=== PATIENT | female | born 1965 | race African-American/Black ===

== ENCOUNTER 2016-09-26 09:02 | Emergency (ER) | payer MEDICARE, MEDICAID ==
[2016-09-26 11:43] VITALS: BP 138/88
[2016-09-26 12:01] LABS: Hematocrit 38 % (35-47); Hemoglobin 12.1 g/dl (12.0-16.0); Mean Corpuscular HGB Conc 32 g/dl (31-36); Mean Corpuscular Hemoglobin 27 pg (27-31); Mean Corpuscular Volume 85 fL (80-97); Mean Platelet Volume 8 um3 (7.4-10.4); Red Blood Count 4.47 10^6/ul (4.0-5.4); Red Cell Distribution Width 15 % (10.5-15); White Blood Count 7.1 10^3/ul (3.5-10.8)
[2016-09-26 12:14] LABS: Albumin 4.3 g/dL (3.2-5.2); BUN/Creatinine Ratio 11.8 (8-20); Calcium 9.5 mg/dL (8.6-10.3); EGFR African American 118.3 (>60); Globulin 3.6 g/dL (2-4); Potassium 4.3 mmol/L (3.5-5.0); Total Bilirubin 0.3 mg/dL (0.2-1.0); Total Protein 7.9 g/dL (6.4-8.9)
[2016-09-26 12:16] LABS: Troponin I 0.03 ng/mL (<0.04)
[2016-09-26 12:41] LABS: TSH (Thyroid Stimulating Horm) 1.84 mcIU/mL (0.34-5.60)
--- NOTE | 2016-09-26 16:03 | ED ---
Andres Darden Auryana, scribed for Sree Stephen MD on 09/26/16 at 1129 . Palpitations / Dysrhythmia - HPI Summary HPI Summary: 51 year old female presents with dysrhythmia starting at 08:00. She reports that her HR was 192 via pulse ox monitor at home. She reports that is lasted until she got here and then her symptoms decreased and eventually resolved. She also has SOB, dizziness - characterized as near syncope with standing, and diaphoresis but denies any CP. She reports no improvement with attempted methods - rest or cold water on face. She denies any caffeine, alcohol, tobacco but states she does eat dark chocolate. She does report oral canadiasis. She is not on a diuretic but does take a potassium (low K+) and a magnesium (believes it would be good for her) supplement. She is not on Veramapil, digoxin, or diltiazem. Her escrow closer is Dr. Brice. Her last episode of SVT was in October 2015. PMHx is significant for SVT with ablation - on metoprolol- recently increased to 200 mg. - History of Current Complaint Chief Complaint: EDDysrhythmPalp Time Seen by Provider: 09/26/16 11:06 Hx Obtained From: Patient Onset/Duration: Sudden Onset Timing: Intermittent Episodes Lasting: - 08:00 until arrival Severity Initially: Mild Severity Currently: Mild Character: Fast - SVT Aggravating: Nothing Alleviating: Nothing Associated Signs & Symptoms: Dizzy, Shortness of Breath Related History: Similar Episode/Dx as - yes see hpi - Allergy/Home Medications Allergies/Adverse Reactions: Allergies Allergy/AdvReac Type Severity Reaction Status Date / Time Latex Allergy IRRITATION Verified 12/13/15 09:02 PMH/Surg Hx/FS Hx/Imm Hx Cardiovascular History: Reports: Hx Coronary Artery Disease, Hx Hypertension, Other Cardiovascular Problems/Disorders - AR X 2, ablation for SVT Respiratory History: Reports: Other Respiratory Problems/Disorders - LARINGEAL CA Musculoskeletal History: Reports: Other Musculoskeletal History - chronic pain both arms - Cancer History Cancer Type, Location and Year: laryngeal - Surgical History Surgery Procedure, Year, and Place: Laryngectomy in 2010 - Immunization History Date of Tetanus Vaccine: unk Date of Influenza Vaccine: fall 2012 Infectious Disease History: Denies: Traveled Outside the [place] in Last 30 Days - Family History Known Family History: Positive: Cardiac Disease, Diabetes, Other - lung cancer - Social History Occupation: Disabled Lives: With Family Alcohol Use: None Substance Use Type: Reports: None Smoking Status (MU): Never Smoked Tobacco Review of Systems Positive: Skin Diaphoresis, Other - dizziness - near syncope with standing Eyes: Negative ENT: Negative Positive: Palpitations. Negative: Chest Pain Positive: Shortness Of Breath Gastrointestinal: Negative Genitourinary: Negative Musculoskeletal: Negative Skin: Negative Neurological: Negative Psychological: Normal All Other Systems Reviewed And Are Negative: Yes Physical Exam - Summary Physical Exam Summary: The patient is well-nourished in no acute distress and in no acute pain. The skin is warm and dry and skin color reflects adequate perfusion. HEENT: The head is normocephalic and atraumatic. The pupils are equal and reactive. The conjunctivae are clear and without drainage. Nares are patent and without drainage. Mouth reveals moist mucous membranes and the throat is without erythema and exudate. The external ears are intact. The ear canals are patent and without drainage. The tympanic membranes are intact. Laryngectomy. Neck is supple with full range of motion and non-tender. There are no carotid bruits. There is no neck vein distension. Respiratory: Chest is non-tender. Lungs are clear to auscultation and breath sounds are symmetrical and equal. Cardiovascular: Hear is regular rate and rhythm. There is no murmur or rub auscultated. There is no peripheral edema and pulses are symmetrical and equal. Abdomen: The abdomen is soft and non-tender. There are normal bowel sounds heard in all four quadrants and there is no organomegaly palpated. Musculoskeletal: There is no back pain noted. Extremities are non-tender with full range of motion. There is good capillary refill. There is no peripheral edema or calf tenderness elicited. Neurological: Patient is alert and oriented to person, place and time. The patient has symmetrical motor strength in all four extremities. Cranial nerves are grossly intact. Deep tendon reflexes are symmetrical and equal in all four extremities. Psychiatric: The patient has an appropriate affect and does not exhibit any anxiety or depression. Triage Information Reviewed: Yes Vital Signs On Initial Exam: Initial Vitals Temp Pulse Resp BP Pulse Ox 96.7 F 87 18 125/68 100 09/26/16 09:05 09/26/16 09:05 09/26/16 09:05 09/26/16 09:05 09/26/16 09:05 Vital Signs Reviewed: Yes Diagnostics - Vital Signs Vital Signs Temp Pulse Resp BP Pulse Ox 09/26/16 09:05 96.7 F 87 18 125/68 100 - Laboratory Lab Results: Lab Results 09/26/16 09/26/16 09/26/16 Range/Units 11:50 11:50 11:50 WBC 7.1 (3.5-10.8) 10^3/ul RBC 4.47 (4.0-5.4) 10^6/ul Hgb 12.1 (12.0-16.0) g/dl Hct 38 (35-47) % MCV 85 (80-97) fL MCH 27 (27-31) pg MCHC 32 (31-36) g/dl RDW 15 (10.5-15) % Plt Count 341 (150-450) 10^3/ul MPV 8 (7.4-10.4) um3 Neut % (Auto) 62.8 (38-83) % Lymph % (Auto) 23.6 L (25-47) % Gray % (Auto) 10.4 H (1-9) % Eos % (Auto) 2.7 (0-6) % Baso % (Auto) 0.5 (0-2) % Absolute Neuts (auto) 4.5 (1.5-7.7) 10^3/ul Absolute Lymphs (auto) 1.7 (1.0-4.8) 10^3/ul Absolute Monos (auto) 0.7 (0-0.8) 10^3/ul Absolute Eos (auto) 0.2 (0-0.6) 10^3/ul Absolute Basos (auto) 0 (0-0.2) 10^3/ul Absolute Nucleated RBC 0 10^3/ul Nucleated RBC % 0 Sodium 136 (133-145) mmol/L Potassium 4.3 (3.5-5.0) mmol/L Chloride 102 (101-111) mmol/L Carbon Dioxide 28 (22-32) mmol/L Anion Gap 6 (2-11) mmol/L BUN 8 (6-24) mg/dL Creatinine 0.68 (0.51-0.95) mg/dL Est GFR ( Amer) 118.3 (>60) Est GFR (Non-Af Amer) 92.0 (>60) BUN/Creatinine Ratio 11.8 (8-20) Glucose 93 (70-100) mg/dL Lactic Acid 1.0 (0.5-2.0) mmol/L Calcium 9.5 (8.6-10.3) mg/dL Magnesium 2.0 (1.9-2.7) mg/dL Total Bilirubin 0.30 (0.2-1.0) mg/dL AST 27 (13-39) U/L ALT 23 (7-52) U/L Alkaline Phosphatase 77 (34-104) U/L Troponin I 0.03 (<0.04) ng/mL Total Protein 7.9 (6.4-8.9) g/dL Albumin 4.3 (3.2-5.2) g/dL Globulin 3.6 (2-4) g/dL Albumin/Globulin Ratio 1.2 (1-3) TSH 1.84 (0.34-5.60) mcIU/mL Result Diagrams: 09/26/16 11:50 09/26/16 11:50 Lab Statement: Any lab studies that have been ordered have been reviewed, and results considered in the medical decision making process. - EKG 09:24 EKG Interpretation: Normal sinus, T wave inversion (new) NO STEMI Re-Evaluation - Re-Evaluation First Eval Re-Evaluation Time: 13:08 - discussed labs, EKG nad plan of action Change: Improved Course/Dx - Course Assessment/Plan: 51 year old female presents with dysrhythmia starting at 08: 00. She reports that her HR was 192 via pulse ox monitor at home. She reports that is lasted until she got here and then her symptoms decreased and eventually resolved. She also has SOB, dizziness - characterized as near syncope with standing, and diaphoresis but denies any CP. She denies any caffeine, alcohol, tobacco but states she does eat dark chocolate. She does report oral canadiasis-nml for her. She is not on a diuretic but does take a potassium (low K+) and a magnesium (believes it would be good for her) supplement. She is not on Veramapil, digoxin, or diltiazem. Her last episode of SVT was in October 2015. PMHx is significant for SVT with ablation - on metoprolol - recently increased to 200 mg. EKG- flipped T waves - otherwise no changes. labs - unremarkable. Will discharge home with diagnosis of SVT resolved - recommend follow up with PCP. - Diagnoses Differential Diagnosis/HQI/PQRI: Positive: Hypokalemia, Paroxymal SVT Provider Diagnoses: SVT resolved Discharge - Discharge Plan Condition: Stable Disposition: HOME Patient Education Materials: Supraventricular Tachycardia (ED) Referrals: Niko Brice MD [Medical Doctor] - 3 Days The documentation as recorded by the Andres elmore Auryana accurately reflects the service I personally performed and the decisions made by me, Sree Stephen MD.
== END 2016-09-26 13:43 | disposition home or self-care (01) ==
LOC: ED 09:02
DX: I47.1 Supraventricular tachycardia (principal); R00.2 Palpitations; R06.02 Shortness of breath
CPT/HCPCS: 36415; 80053; 83605; 83735; 84443; 84484; 85025; 93005; 99282

== ENCOUNTER 2017-02-13 09:49 | Day surgery (SDC) | payer MEDICARE, MEDICAID ==
[~2017-02-13 09:49] MED LIST: Buffered Lidocaine 0.9% SYRIN* 5 ML/SYR SYRINGE INTRADERM ONE
[2017-02-13 10:26] VITALS: BP 134/86
--- NOTE | 2017-02-14 00:24 | OP ---
DATE OF OPERATION: 02/13/17 - [facility] DATE OF : 69 SURGEON: Jacky Miles MD ANESTHESIA: No anesthesia was used. 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 POST-OP DIAGNOSIS: OPERATIVE PROCEDURE: Replacement of her tracheoesophageal puncture prosthesis with #10 Provox 2 tracheoesophageal puncture prosthesis. DESCRIPTION OF PROCEDURE: I in the office earlier in the month, but it was malfunctioning and she is in the local room for this procedure. The old TEP was grasped and removed. The new TEP was loaded into insertion system, was inserted into the fistula, advanced and put in place without difficulty. The tail was trimmed and was rotated into position and when she phonated, she thought this one was working extremely well for her. [id number]/[facility] #: [id number] MTDD
== END 2017-02-13 10:41 | disposition home or self-care (01) ==
LOC: OR 09:49
PROVIDERS: ATTEND Otolaryngology
DX: T85.848A Pain due to other internal prosthetic devices, implants and grafts, initial encounter (principal); Z90.02 Acquired absence of larynx; Z85.21 Personal history of malignant neoplasm of larynx; Y83.1 Surgical operation with implant of artificial internal device as the cause of abnormal reaction of the patient, or of later complication, without mention of misadventure at the time of the procedure; Z93.4 Other artificial openings of gastrointestinal tract status; E11.9 Type 2 diabetes mellitus without complications; Z79.84 Long term (current) use of oral hypoglycemic drugs
CPT/HCPCS: L8509

== ENCOUNTER → 2018-02-12 10:34 | Day surgery (SDC) | payer MEDICARE, MEDICAID ==
[2018-02-12 11:27] VITALS: BP 131/92
--- NOTE | 2018-02-13 04:11 | OP ---
OPERATIVE REPORT: DATE OF OPERATION: 02/12/18 DATE OF : 69 SURGEON: Ari Miles MD PRE-OP DIAGNOSIS: She has a tracheoesophageal puncture prosthesis following a total laryngectomy. POST-OP DIAGNOSIS: OPERATIVE PROCEDURE: Change of a tracheoesophageal puncture prosthesis with #10 Provox 2 prosthesis. DESCRIPTION OF PROCEDURE: The patient was in same day and has the TEP in place and it has gotten dir ty and needed to be removed. We used a hemostat, grabbed it and pulled it out. We then used to alok ure to see if we have been using the correct size and she was between an 8 and a 10. The new prosthe sis was loaded on to the insertion system. It was inserted, put in place, rotated into the proper po sition. The tail was cut and the barrel builder was removed. The patient tolerated this procedure well. [id number]/[facility] #: [id number]
== END | disposition home or self-care (01) ==
LOC: OR 10:34
PROVIDERS: ATTEND Otolaryngology
DX: Z96.89 Presence of other specified functional implants (principal); Z93.8 Other artificial opening status; Z85.21 Personal history of malignant neoplasm of larynx; Z97.8 Presence of other specified devices
CPT/HCPCS: L8509

== ENCOUNTER → 2018-04-28 06:40 | Day surgery (SDC) | payer MEDICARE, MEDICAID ==
--- NOTE | 2018-04-28 11:10 | OP ---
OPERATIVE REPORT: DATE OF OPERATION: 04/28/18 DATE OF : 69. SURGEON: Jacky Miles MD OPERATIVE PROCEDURE: Change of tracheoesophageal puncture with a #10 Provox TEP prosthesis, status p ost laryngectomy utilizing a tracheoesophageal puncture for pharyngeal speech. DESCRIPTION OF PROCEDURE: She was sitting up in the local room, I grasped the old TEP with a mosquit o and removed it. I put the new Provox into the insertion system, placed it in place and made sure i t was fitting properly and trimmed the tail. The patient tolerated the procedure well. [id number]/[facility] #: [id number]
== END | disposition home or self-care (01) ==
LOC: OR 06:40
PROVIDERS: ATTEND Otolaryngology
DX: Z45.89 Encounter for adjustment and management of other implanted devices (principal); Z90.02 Acquired absence of larynx; Z85.21 Personal history of malignant neoplasm of larynx; E11.9 Type 2 diabetes mellitus without complications
CPT/HCPCS: L8509

== ENCOUNTER → 2018-06-01 06:43 | Day surgery (SDC) | payer MEDICARE, MEDICAID ==
[2018-06-01 07:09] VITALS: BP 137/75
--- NOTE | 2018-06-01 14:08 | PRO ---
DATE OF PROCEDURE: 06/01/18 - [facility] DATE OF : 69 SURGEON: Jacky Miles MD ANESTHESIA: None. DIAGNOSIS: Tracheoesophageal puncture, status post total laryngectomy. OPERATIVE PROCEDURE: Changing of tracheoesophageal puncture prosthesis. DESCRIPTION OF PROCEDURE: The patient was sitting up. The old TEP was grasped and removed. The new one was loaded into the insertion system that was inserted through the puncture and placed. The tail was cut and it was rotated into position. I used a #10 Provox 2 TEP. The patient tolerated the procedure well. [id number]/[facility] #: [id number] MTDD
== END | disposition home or self-care (01) ==
LOC: OR 06:43
PROVIDERS: ATTEND Otolaryngology
DX: Z43.8 Encounter for attention to other artificial openings (principal); Z85.21 Personal history of malignant neoplasm of larynx; Z87.891 Personal history of nicotine dependence
CPT/HCPCS: L8509

== ENCOUNTER → 2018-08-13 11:36 | Day surgery (SDC) | payer MEDICARE, MEDICAID ==
[2018-08-13 11:54] VITALS: BP 151/74
--- NOTE | 2018-08-13 21:25 | OP ---
DATE OF OPERATION: 08/13/18 - [facility] DATE OF : 69 SURGEON: Jacky Miles MD ANESTHESIA: No anesthesia. PRE-OP DIAGNOSIS: POST-OP DIAGNOSIS: OPERATIVE PROCEDURE: Replacement of a leaking tracheoesophageal puncture prosthesis. DESCRIPTION OF PROCEDURE: The patient was in Same Day and she had a leaking tracheoesophageal puncture prosthesis. I removed the old one. I then used a measure and she measured between 8 and 10. She has been using a 10. I replaced the TEP with a #10 Provox 2 prosthesis. The patient tolerated this procedure well. [id number]/[facility] #: [id number] MTDD
== END | disposition home or self-care (01) ==
LOC: OR 11:36
PROVIDERS: ATTEND Otolaryngology
DX: T85.898A Other specified complication of other internal prosthetic devices, implants and grafts, initial encounter (principal); Z93.4 Other artificial openings of gastrointestinal tract status; Z85.21 Personal history of malignant neoplasm of larynx
CPT/HCPCS: L8509

== ENCOUNTER → 2018-09-03 12:03 | Day surgery (SDC) | payer MEDICARE, MEDICAID ==
--- NOTE | 2018-09-03 21:19 | OP ---
DATE OF OPERATION: 09/03/18 - [facility] DATE OF : 69 SURGEON: Jacky Miles MD ANESTHESIA: No anesthesia. PRE-OP DIAGNOSIS: POST-OP DIAGNOSIS: OPERATIVE PROCEDURE: Replacement of a tracheoesophageal puncture prosthesis. BLOOD LOSS: None. DESCRIPTION OF PROCEDURE: The patient was sitting up and the new Toma-Cartwright # 10 wide flanged TEP was loaded into the insertion system. The capsule was placed over. The old TEP was grasped and removed. The new TEP was placed and the tail was trimmed. The patient tolerated the procedure well. [id number]/[facility] #: [id number] MTDD
== END | disposition home or self-care (01) ==
LOC: OR 12:03
PROVIDERS: ATTEND Otolaryngology
DX: T85.591A Other mechanical complication of esophageal anti-reflux device, initial encounter (principal); X58.XXXA Exposure to other specified factors, initial encounter
CPT/HCPCS: L8509

== ENCOUNTER → 2019-04-22 | Day surgery (SDC) | payer MEDICARE, MEDICAID ==
[~2019-04-22] MED LIST changes: -Buffered Lidocaine 0.9% SYRIN* 5 ML/SYR SYRINGE INTRADERM ONE; +Lidocaine 2% JELLY* 6 ML JELLY TOPICAL ONE; +Lidocaine 2% VISCOUS* 15 ML UDC ONE; +Midazolam* 1 MG/ML 2 ML VIAL (2 MG) ONE; +fentaNYL* 50 MCG/ML 2 ML VIAL (100 MCG VIAL) ONE
--- NOTE | 2019-04-22 20:50 | OP ---
DATE OF PROCEDURE: 04/22/19 - [facility] DATE OF : [birth year] SURGEON: Elroy Sun MD No anesthesia was used. 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 OPERATIVE PROCEDURE: Replacement of tracheoesophageal puncture prosthesis. DESCRIPTION OF PROCEDURE: This is a 53-year-old woman who had total laryngectomy for laryngeal cancer approximately 7 years ago. She has tracheoesophageal puncture prosthesis, which has facilitated speech. Her prosthesis has began to leak and she presented to the hospital for replacement. The old prosthesis was removed. A new size #10 Provox #2 was placed in a standard fashion. The fit was excellent. The TEP was trimmed and the prosthesis seated appropriately. The patient was able to cough without dislodging the prosthesis and was able to phonate well and she was discharged after placement. [id number]/[facility] #: [id number] MTDD
== END | disposition home or self-care (01) ==
LOC: OR 10:22
PROVIDERS: ATTEND Otolaryngology
DX: R49.1 Aphonia (principal); Z85.21 Personal history of malignant neoplasm of larynx; Z93.4 Other artificial openings of gastrointestinal tract status
CPT/HCPCS: J2250; J3010

== ENCOUNTER 2019-06-03 12:07 | Day surgery (SDC) | payer MEDICARE, MEDICAID ==
--- NOTE | 2019-06-03 23:48 | OP ---
DATE OF OPERATION: 06/03/19 - [facility] DATE OF : 69. SURGEON: Elroy Sun MD. CANE FURNITURE MAKER: None. ANESTHESIA: None. PRE-OP DIAGNOSIS: Aphonia secondary to laryngectomy state. POST-OP DIAGNOSIS: Aphonia secondary to laryngectomy state. OPERATIVE PROCEDURE: Changing of TEP device (tracheoesophageal prosthesis device). INDICATION: This is a 54-year-old woman who presents for changing of her TEP device. It has begun to leak. DESCRIPTION OF PROCEDURE: The patient was brought to the procedure room. The patient's old device was removed with a mosquito clamp. A new device was loaded into the introducer. Surgilube was placed at the end of the introducer. It was then placed easily into the parting wall between the esophagus and trachea. Good position was confirmed by having the patient drink and the prosthesis did not leak and the patient was able to phonate. The tab was trimmed and the prosthesis was oriented properly. The patient was then discharged. [id number]/[facility] #: [id number] [facility]
== END 2019-06-03 14:25 | disposition home or self-care (01) ==
LOC: OR 12:07
PROVIDERS: ATTEND Otolaryngology
DX: R49.1 Aphonia (principal); Z85.21 Personal history of malignant neoplasm of larynx; Z93.4 Other artificial openings of gastrointestinal tract status; F41.9 Anxiety disorder, unspecified

== ENCOUNTER 2019-08-19 10:57 | Day surgery (SDC) | payer MEDICARE, MEDICAID ==
[2019-08-19 11:59] VITALS: BP 130/71
--- NOTE | 2019-08-19 12:26 | OP ---
DATE OF OPERATION: 08/19/19 [facility] DATE OF : 69 SURGEON: Elroy Sun MD METALSMITH APPRENTICE: None. ANESTHESIA: None. PRE-OP DIAGNOSIS: Aphonia secondary to laryngectomy state. POST-OP DIAGNOSIS: Aphonia secondary to laryngectomy state. OPERATIVE PROCEDURE: Replacement of TEP prosthesis with a new Provox2 #10. COMPLICATIONS: None. DESCRIPTION OF PROCEDURE: The patient was brought to the operating room. Her old TEP device was removed with a mosquito clamp. The new device was loaded. Surgilube was placed on the tip of the introducer. It was introduced in the usual fashion. It fit nicely into place. The tab was trimmed and the device was turned so that the residual of the tab was facing inferiorly towards 6 o' clock. The patient was able to phonate well. It felt and appeared to be in good position. The patient was sent home. [id number]/[facility] #: [id number] MTDD
== END 2019-08-19 11:58 | disposition home or self-care (01) ==
LOC: OREAST 10:57
PROVIDERS: ATTEND Otolaryngology
DX: T85.898A Other specified complication of other internal prosthetic devices, implants and grafts, initial encounter (principal); Z93.4 Other artificial openings of gastrointestinal tract status; R49.1 Aphonia; Z85.21 Personal history of malignant neoplasm of larynx; R13.14 Dysphagia, pharyngoesophageal phase; B37.81 Candidal esophagitis
CPT/HCPCS: L8509